=== PATIENT | female | born 1995 | race Hispanic/Latino ===

== ENCOUNTER 2016-12-30 00:22 | Emergency (ER) | payer SELFPAY ==
[~2016-12-30] VITALS: Ht 167.6 cm; Wt 110.0 kg
[~2016-12-30 00:22] MED LIST: AMOXICILLIN500 MG PO; BACTRIM DS1 TAB OR; CIPROFLOXACN500 MG PO; FERR SULFATE325 MG PO; IBUPROFEN600 MG PO; LORTAB 5 OR; LORTAB 7.5-3251 TAB PO; MACRODANTIN100 MG PO; PRENATAL1 TA1 PO; REGLAN10 MG OR; TYLENOL325 MG PO; ULTRAM50 M1 PO
[2016-12-30] MEDS ORDERED: NAPROSYN500 MG PO (01:55)
[2016-12-30 02:00] VITALS: BP 123/82
== END 2016-12-30 02:05 | disposition home or self-care (01) | DRG 552 ==
LOC: ED 00:22
DX: S13.9XXA Sprain of joints and ligaments of unspecified parts of neck, initial encounter (principal); S20.212A Contusion of left front wall of thorax, initial encounter; V49.40XA Driver injured in collision with unspecified motor vehicles in traffic accident, initial encounter

== ENCOUNTER 2017-10-08 23:11 | Emergency (ER) | payer OTHER ==
[~2017-10-08] VITALS: Ht 167.6 cm; Wt 114.6 kg
[~2017-10-08 23:11] MED LIST changes: +NAPROSYN500 MG PO
[2017-10-08 23:15] VITALS: BP 130/85
[2017-10-08] MEDS ORDERED: PRENATA3 PO (23:28)
[2017-10-09] LABS: HEMATOCRIT 34.5 % (37.0-47.0); HEMOGLOBIN 11.3 g/dl (12.0-16.0); IMMATURE GRANULOCYTES 0.6 % (0.0-1.0); MEAN CORPUSCULAR HGB 30.5 pG CALC (26.0-32.0); MEAN CORPUSCULAR HGB CONC 32.8 g/L CALC (32.0-36.0); NEUT# 4.92 thou/uL (2.00-7.15); RED BLOOD COUNT 3.71 mill/uL (4.20-5.60); RED CELL DISTRI WIDTH 14.3 % (11.5-15.5)
[2017-10-09 00:01] LABS: URINE BILIRUBIN - DIPSTICK NEGATIVE (NEGATIVE); URINE BLOOD DIPSTICK MODERATE (NEGATIVE); URINE COLOR YELLOW; URINE GLUCOSE - DIPSTICK NEGATIVE (NEGATIVE); URINE KETONE NEGATIVE (NEGATIVE); URINE LEUK ESTERASE TRACE (NEGATIVE); URINE NITRITE - DIPSTICK NEGATIVE (Negative); URINE PROTEIN - DIPSTICK NEGATIVE (NEG-TRACE); URINE SPECIFIC GRAVITY <=1.005; URINE UROBILINOGEN - DIPSTICK 0.2 E.U./dL (0.2)
[2017-10-09 00:03] LABS: URINE CLARITY SL CLOUDY
[2017-10-09 00:11] LABS: URINE BACTERIA FEW hpf; URINE MUCUS FEW hpf (NONE-FEW); URINE SQUAMOUS EPITHELIAL CELL FEW EPI/hpf (0-FEW); URINE TRICHOMONAS FEW hpf
[2017-10-09 00:24] LABS: ANION GAP 12 (6-22 (CALC)); BILIRUBIN, TOTAL 0.4 mg/dL (0.0-1.4); BUN 3 mg/dL (7-17); BUN/CREATININE RATIO 7 (12-20 (CALC)); CARBON DIOXIDE 19 mmol/l (22-30); CHLORIDE 109 mmol/l (95-108); CREATININE 0.4 mg/dL (0.5-1.0); GFR > 60 ML/MIN (>=60 (CALC)); GFR FOR AFR.AMER. > 60 ML/MIN (>=60 (CALC)); POTASSIUM 3.8 mmol/l (3.5-5.1); SGPT/ALT 31 u/l (9-52); SODIUM 136 mmol/l (137-146)
[2017-10-09 00:26] LABS: ALBUMIN 3.4 g/dL (3.2-5.0); ALKALINE PHOSPHATASE 87 u/l (38-126); SGOT/AST 17 u/l (14-36); TOTAL PROTEIN 6.5 g/dL (6.3-8.2)
[2017-10-09] MEDS ORDERED: METRONIDAZOL500 MG PO (00:30)
[2017-10-09 00:41] LABS: BETA-HCG, QUANT(RESULT NUMBER) 8493 mIU/mL
== END 2017-10-09 00:15 | disposition home or self-care (01) | DRG 781 ==
LOC: ED 23:11
PROVIDERS: Emergency Medicine
DX: O23.93 Unspecified genitourinary tract infection in pregnancy, third trimester (principal); A59.9 Trichomoniasis, unspecified; O26.893 Other specified pregnancy related conditions, third trimester; R10.33 Periumbilical pain; Z3A.28 28 weeks gestation of pregnancy

== ENCOUNTER 2017-11-16 18:52 | Emergency (ER) | payer OTHER ==
[~2017-11-16] VITALS: Ht 167.6 cm; Wt 116.0 kg
[~2017-11-16 18:52] MED LIST changes: +METRONIDAZOL500 MG PO; +PRENATA3 PO
[2017-11-16 19:35] VITALS: BP 110/69
== END 2017-11-16 19:35 | disposition home or self-care (01) ==
LOC: ED 18:52
DX: S91.011A Laceration without foreign body, right ankle, initial encounter (principal); W26.8XXA Contact with other sharp object(s), not elsewhere classified, initial encounter; Y93.01 Activity, walking, marching and hiking; Y92.009 Unspecified place in unspecified non-institutional (private) residence as the place of occurrence of the external cause

== ENCOUNTER 2019-06-30 18:11 | Emergency (ER) | payer MEDICAID ==
[2019-06-30 19:03] VITALS: BP 122/79
== END 2019-06-30 19:03 | disposition home or self-care (01) ==
LOC: ED 18:11
DX: B34.9 Viral infection, unspecified (principal)

== ENCOUNTER 2020-11-21 16:36 | Emergency (ER) | payer OTHER ==
[~2020-11-21] VITALS: Ht 167.6 cm; Wt 127.0 kg
[2020-11-21 18:50] VITALS: BP 125/72
== END 2020-11-21 18:50 | disposition home or self-care (01) ==
LOC: ED 16:36
DX: S90.02XA Contusion of left ankle, initial encounter (principal); S90.32XA Contusion of left foot, initial encounter; W50.0XXA Accidental hit or strike by another person, initial encounter; Y93.89 Activity, other specified; Y99.0 Civilian activity done for income or pay

== ENCOUNTER 2021-01-06 17:43 | Emergency (ER) | payer OTHER ==
[~2021-01-06] VITALS: Ht 167.6 cm; Wt 119.0 kg
[2021-01-06 20:16] VITALS: BP 129/84
== END 2021-01-06 20:16 | disposition home or self-care (01) | DRG 563 ==
LOC: ED 17:43
DX: S83.91XA Sprain of unspecified site of right knee, initial encounter (principal); X50.0XXA Overexertion from strenuous movement or load, initial encounter; Y93.79 Activity, other specified sports and athletics

== ENCOUNTER 2021-08-19 05:34 | Emergency (ER) | payer OTHER ==
[~2021-08-19] VITALS: Ht 167.6 cm; Wt 109.0 kg
[2021-08-19 05:39] VITALS: BP 135/102
[2021-08-19 06:00] VITALS: BP 131/98
[2021-08-19 06:04] LABS: HEMATOCRIT 40.1 % (37.0-47.0); HEMOGLOBIN 12.6 g/dl (12.0-16.0); IMMATURE GRANULOCYTES 0.1 % (0.0-5.0); MEAN CELL VOLUME 91.3 fL CALC (80.0-100.0); MEAN CORPUSCULAR HGB 28.7 pG CALC (26.0-32.0); MEAN CORPUSCULAR HGB CONC 31.4 g/dL CAL (32.0-36.0); NEUT# 4.59 thou/uL (2.00-7.15); RED BLOOD COUNT 4.39 mill/uL (4.20-5.60); RED CELL DISTRI WIDTH 13.4 % (11.5-15.5)
[2021-08-19 06:15] LABS: HCG SERUM/URINE (NEG/POS) NEGATIVE (NEGATIVE)
[2021-08-19 06:30] VITALS: BP 136/98
[2021-08-19] MEDS ORDERED: TESSALON PERLE100 MG PO (06:53)
[2021-08-19 07:01] VITALS: BP 136/98
== END 2021-08-19 07:05 | disposition home or self-care (01) ==
LOC: ED 05:34
PROVIDERS: Family Medicine
DX: J06.9 Acute upper respiratory infection, unspecified (principal); Z20.822 Contact with and (suspected) exposure to COVID-19